=== PATIENT | male | born 1980 | race Caucasian/White ===

== ENCOUNTER 2016-10-08 16:22 | Inpatient (IN) | payer OTHER ==
[2016-10-08 16:59] VITALS: BMI 21.7
--- NOTE | 2016-10-08 17:37 | HP ---
COWS - Scale Resting Pulse: 0= [place] 80 or Below Sweatin=Flushed/Facial Moisture Restless Observation: 3= Extraneous Movement Pupil Size: 2= Moderately Dilated Bone or Joint Aches: 2= Severe Diffuse Aches Runny Nose/ Eye Tearin= Runny Nose/Eyes GI Upset > 30mins: 3= Vomiting/Diarrhea Tremor Observation: 2= Slight Tremor Visible Yawning Observation: 2= >3x During Session Anxiety or Irritability: 2=Irritable/Anxious Goose Flesh Skin: 0=Smooth Skin COWS Score: 20 Admission ROS S - HPI Chief Complaint: i need help to stop using heroin Allergies/Adverse Reactions: Allergies Allergy/AdvReac Type Severity Reaction Status Date / Time bee pollen Allergy Severe Verified 10/08/16 17:13 bee venom protein (honey bee) Allergy Severe Verified 10/08/16 17:13 History of Present Illness: this 36 years old male with heroin dependence seeking detox,last treatment [facility] 08/15/15 to 08/18/15 history of suboxone maintenance,did not take it for 1 week,did not want to be on suboxone bipolar disorder ptsd no significant period of sobriety - Ebola screening Have you traveled outside of the country in the last 21 days: No Have you had contact with anyone from an Ebola affected area: No Have you been sick,other than usual withdrawal symptoms: No Do you have a fever: No - Review of Systems Constitutional: Chills, Diaphoresis, Loss of Appetite, Malaise, Night Sweats, Changes in sleep, Weakness, Unintentional Wgt. Loss EENT: reports: Tearing, Nose Congestion Respiratory: reports: No Symptoms reported Cardiac: reports: Palpitations GI: reports: Diarrhea, Nausea, Vomiting, Abdominal cramping : reports: No Symptoms Reported Musculoskeletal: reports: Back Pain, Joint Pain, Muscle Pain, Joint Stiffness Integumentary: reports: Dryness Neuro: reports: Headache, Tremors Endocrine: reports: No Symptoms Reported Hematology: reports: No Symptoms Reported Psychiatric: reports: Judgement Intact, Mood/Affect Appropiate, Orientated x3, other (bipolar disorder) Patient History - Patient Medical History Hx Anemia: No Hx Asthma: No Hx Chronic Obstructive Pulmonary Disease (COPD): No Hx Cancer: No Hx Cardiac Disorders: No Hx Congestive Heart Failure: No Hx Hypertension: No Hx Hypercholesterolemia: No Hx Pacemaker: No HX Cerebrovascular Accident: No Hx Seizures: No Hx Dementia: No Hx Diabetes: No Hx Gastrointestinal Disorders: No Hx Liver Disease: No Hx Genitourinary Disorders: No Hx Sexually Transmitted Disorders: No Hx Renal Disease (ESRD): No Hx Thyroid Disease: No Hx Human Immunodeficiency Virus (HIV): No (LAST 05/23 NEGATIVE) Hx Hepatitis C: No Hx Depression: Yes Hx Suicide Attempt: Yes (Pt drank anti-freeze at age 17 yrs old.) Hx Bipolar Disorder: Yes Hx Schizophrenia: No Other Medical History: no suicidal,no homicidal,low back pain - Patient Surgical History Past Surgical History: No Hx Neurologic Surgery: No Hx Cataract Extraction: No Hx Cardiac Surgery: No Hx Lung Surgery: No Hx Breast Surgery: No Hx Breast Biopsy: No Hx Abdominal Surgery: No Hx Appendectomy: No Hx Cholecystectomy: No Hx Genitourinary Surgery: No Hx Section: No Hx Orthopedic Surgery: No Anesthesia Reaction: No - PPD History Previous Implant?: Yes Documented Results: Negative w/o proof Implanted On Prior [facility] Admission?: Yes Date: 08/17/15 Results: 0 mm PPD to be Administered?: Yes - Smoking Cessation Smoking history: Current every day smoker Have you smoked in the past 12 months: Yes Aproximately how many cigarettes per day: 20 Cigars Per Day: 0 Hx Chewing Tobacco Use: No Initiated information on smoking cessation: Yes 'Breaking Loose' booklet given: 10/08/16 - Substance & Tx. History Hx Alcohol Use: No Substance Use Type: Marijuana Hx Substance Use Treatment: Yes ([facility] 08/15/15 to 08/18/15) - Substances Abused Heroin Route: Injection Frequency: Daily Amount used: 3 bags Age of first use: 17 Date of Last Use: 10/08/16 Marijuana/Hashish Route: Smoking Frequency: 1-3 times last 30 days Amount used: 1 joint Age of first use: 14 Date of Last Use: 10/03/16 Family Disease History - Family Disease History Family Disease History: Diabetes: Grandparent, Other: Mother (ALCOHOLIC) Admission Physical Exam BHS - Vital Signs Vital Signs: Vital Signs - 24 hr 10/08/16 16:57 Temperature 97.7 F Pulse Rate 66 Respiratory 20 Rate Blood Pressure 113/66 - Physical General Appearance: Yes: Moderate Distress, Thin, Tremorous, Irritable, Sweating , Anxious HEENTM: Yes: Hearing grossly Normal, Normal ENT Inspection, Normocephalic, JERAD , Pharynx Normal Respiratory: Yes: Lungs Clear, Normal Breath Sounds, No Respiratory Distress Neck: Yes: Within Normal Limits, No masses,lesions,Nodules, Supple, Trachea in good position Breast: Yes: Within Normal Limits Cardiology: Yes: Within Normal Limits, Regular Rhythm, Regular Rate, S1, S2 Abdominal: Yes: Within Normal Limits, Normal Bowel Sounds, Non Tender, Flat, Soft Genitourinary: Yes: Within Normal Limits Back: Yes: Normal Inspection, Muscle Spasm Musculoskeletal: Yes: full range of Motion, Back pain, Joint Stiffness, Muscle Pain Extremities: Yes: Normal Inspection, Normal Range of Motion, Tremors Neurological: Yes: commercial internship II-XII NML intact, Alert, Motor Strength 5/5, Normal Mood /Affect Integumentary: Yes: Dry Lymphatic: Yes: Within Normal Limits - Diagnostic (1) Bipolar disorder Current Visit: No Status: Acute (2) Cocaine abuse Current Visit: No Status: Acute (3) Opioid dependence with withdrawal Current Visit: No Status: Acute (4) Weight loss Current Visit: No Status: Acute (5) Nicotine dependence Current Visit: No Status: Chronic (6) Low back pain Current Visit: Yes Status: Acute Cleared for Admission [facility] - Detox or Rehab [facility] Level of Care: Medically Managed Detox Regimen/Protocol: Methadone [facility] Breath Alcohol Content Breath Alcohol Content: 0 Urine Drug Screen - Results Drug Screen Negative: No Urine Drug Screen Results: THC-Marijuana, ANITA-Cocaine, OPI-Opiates
[2016-10-08] MEDS ORDERED: MENTHOL/PHENOL 1 EACH UD MM PRN (17:48)
[2016-10-08] MEDS ORDERED: MAGNESIUM CITRATE 300 ML BOTTLE PO PRN (17:48)
[2016-10-08] MEDS ORDERED: LOPERAMIDE HCL 2 MG CAPSULE PO PRN (17:48)
[2016-10-08] MEDS ORDERED: METHADONE HCL 10 MG TABLET (FOR DETOX USE ONLY) PO ONE ×2 (17:48→23:00)
[2016-10-08] MEDS ORDERED: guaiFENesin/D-METHORPHAN HB 10 ML UNIT-DOSE CUPS PO PRN (17:48)
[2016-10-08] MEDS ORDERED: P-EPHED 60MG/TRIPROLIDI 2.5MG TABLET PO PRN (17:48)
[2016-10-08] MEDS ORDERED: ACETAMINOPHEN 325 MG TABLET (FP) PO PRN (17:48)
[2016-10-08] MEDS ORDERED: MAGNESIUM HYDROX 2400MG/30ML ORAL SUSPENSION 30 ML CUP PO PRN (17:48)
[2016-10-08] MEDS ORDERED: IBUPROFEN 400 MG TABLET (FP) PO PRN (17:48)
[2016-10-08] MEDS ORDERED: diphenhydrAMINE HCL 50 MG CAPSULE PO PRN (17:48)
[2016-10-08] MEDS ORDERED: hydrOXYzine PAMOATE 50 MG CAPSULE (FP) PO PRN (17:48)
[2016-10-08] MEDS ORDERED: MAG HYDROX/AL HYDROX/SIMETH 30 ML UNIT-DOSE CUP PO PRN (17:48)
[2016-10-08] MEDS: diazePAM 5 MG TABLET PO PRN (18:40)
[2016-10-08] MEDS: NICOTINE 21 MG/24 HOURS TOPICAL PATCH TD SCH (18:44)
[2016-10-08] MEDS: THIAMINE HCL 100 MG TABLET (FP) PO SCH (22:03)
[2016-10-08 23:28] LABS: URINE APPEARANCE CLOUDY; URINE BLOOD NEGATIVE (NEGATIVE); URINE COLOR AMBER; URINE GLUCOSE (UA) NEGATIVE (NEGATIVE); URINE KETONE TRACE (NEGATIVE); URINE LEUK ESTERASE NEGATIVE (NEGATIVE); URINE NITRITE NEGATIVE (NEGATIVE)
[2016-10-08 23:30] LABS: URINE PROTEIN 2+ (NEGATIVE)
[2016-10-09 00:56] LABS: URINE HYALINE CAST 178 /lpf; URINE MUCUS MANY; URINE RBC 13 /hpf (0-3); URINE WBC 18 /hpf (3-5); YEAST MANY
[2016-10-09] MEDS: diazePAM 5 MG TABLET PO PRN ×6 (02:00→22:47)
[2016-10-09] MEDS ORDERED: METHADONE HCL 10 MG TABLET (FOR DETOX USE ONLY) PO ONE (10:00)
[2016-10-09 10:09] LABS: ALBUMIN 3.5 g/dl (3.4-5.0); ANION GAP 7 (8-16); CO2 29 mmol/L (21-32); GLUCOSE,RANDOM 79 mg/dL (74-106); SGOT/AST 15 U/L (15-37); SGPT/ALT 21 U/L (12-78)
[2016-10-09 10:11] LABS: ALK PHOS 57 U/L (45-117); BILIRUBIN,TOTAL 0.7 mg/dL (0.2-1.0); CALCIUM 8.6 mg/dL (8.5-10.1); CREATININE 0.9 mg/dL (0.7-1.3); TOT PROT 6.1 g/dl (6.4-8.2)
[2016-10-09 10:16] LABS: MCH 30.1 pg (25.7-33.7); MEAN CELL VOLUME 91.3 fl (80-96); MEAN PLT VOLUME 8.2 fl (7.5-11.1); PLATELET COUNT 224 K/MM3 (134-434); RDW 15.1 % (11.9-15.9)
[2016-10-09] MEDS: PRENATAL VITAMINS W/ FOLIC ACID TABLET (FP) PO SCH (10:24)
[2016-10-09] MEDS: NICOTINE 21 MG/24 HOURS TOPICAL PATCH TD SCH (10:25)
--- NOTE | 2016-10-09 10:52 | CONSULT ---
[facility] Psychiatric Consult - Data Date of interview: 10/09/16 Admission source: [facility] Identifying data: Readmission to [facility] for this 36 y/o male seeking detox treatment on for heroin and marijuana dependence.Patient is single without children,domiciled,unemployed and supported on Welfare. Substance Abuse History: Fully discussed with the patient in this interview.Mr Lopez confirms pattern of substance abuse self-reported at [facility] : Smoking Cessation. Smoking history: Current every day smoker. Have you smoked in the past 12 months: Yes. Aproximately how many cigarettes per day: 20. Cigars Per Day: 0. Hx Chewing Tobacco Use: No. Initiated information on smoking cessation : Yes. 'Breaking Loose' booklet given: 10/08/16. - Substance & Tx. History. Hx Alcohol Use: No. Substance Use Type: Marijuana. Hx Substance Use Treatment : Yes ([facility] 08/15/15 to 08/18/15). - Substances Abused. Heroin. Route: Injection. Frequency: Daily. Amount used: 3 bags. Age of first use: 17. Date of Last Use: 10/08/16. Marijuana/Hashish. Route: Smoking. Frequency: 1-3 times last 30 days. Amount used: 1 joint. Age of first use: 14. Date of Last Use: 10/03/16 Medical History: Patient denies medical problems. Psychiatric History: Patient is a hostile and easily irritable historian.He admits to " more than 20 " psychiatric hospitalizations.Known mostly to [facility] and [facility].Diagnosed with Bipolar Disorder and PTSD.Mr Lopez gets his psychiatric outpatient services at the [facility] in [place].Maintained on gabapentin 1200 mg po tid + thorazine 150 mg po hs.Patient endorses adequate adherence to [facility]PD care.Noted history of a suicide attempt (deliberate ingestion of antifreeze fluid) at age 17.Chronic insomnia remains an enduring issue. Physical/Sexual Abuse/Trauma History: Patient denies. Additional Comment: Urine Drug Screen Results: THC-Marijuana, ANITA-Cocaine, OPI- Opiates.Noted. Mental Status Exam - Mental Status Exam Alert and Oriented to: Time, Place, Person Cognitive Function: Good Patient Appearance: Well Groomed Mood: Hostile, Nervous, Withdrawn, Irritable Affect: Normal Range Patient Behavior: Passive, Fatigued, Guarded, Cooperative (marginally) Speech Pattern: Clear Voice Loudness: Normal Thought Process: Goal Oriented Thought Disorder: Not Present Hallucinations: Denies Suicidal Ideation: Denies Homicidal Ideation: Denies Insight/Judgement: Poor Sleep: Poorly, Difficulty falling asleep Appetite: Good Muscle strength/Tone: Normal Gait/Station: Normal Psychiatric Findings - Problem List ([place] 1, 2,3) (1) Opioid dependence with withdrawal Current Visit: Yes Status: Acute (2) Cannabis dependence Current Visit: Yes Status: Acute (3) Nicotine dependence Current Visit: Yes Status: Acute (4) Drug-induced mood disorder Current Visit: Yes Status: Acute (5) Bipolar disorder Current Visit: Yes Status: Chronic Comment: History. (6) PTSD (post-traumatic stress disorder) Current Visit: No Status: Chronic Comment: As per records. (7) Low back pain Current Visit: Yes Status: Chronic (8) Insomnia Current Visit: Yes Status: Acute - Initial Treatment Plan Initial Treatment Plan: Psychoeducation initiated.Detoxification.Medications : thorazine 100 mg po hs + gabapentin 600 mg po tid.Doses are reduced as caution against potential for oversedation/orthostasis.Beisides patient's reliability remains questionable (survey of recent pharmacy claims : not helpful).Will titrate as clinically indicated.Side effects/benefits discussed with patient.He is in agreement with this careplan.Observation.
[2016-10-09 12:27] LABS: HIV 1 & 2 AB NEGATIVE; HIV 1 AGp24 NEGATIVE
--- NOTE | 2016-10-09 12:56 | EKG ---
Test Reason : Blood Pressure : / mmHG Vent. Rate : 064 BPM Atrial Rate : 064 BPM P-R Int : 142 ms QRS Dur : 110 ms QT Int : 402 ms P-R-T Axes : 062 -70 057 degrees QTc Int : 414 ms NORMAL SINUS RHYTHM INCOMPLETE RIGHT BUNDLE BRANCH BLOCK LEFT ANTERIOR FASCICULAR BLOCK ABNORMAL ECG NO PREVIOUS ECGS AVAILABLE Confirmed by HARLEEN PLUMMER MD ([id number]) on 10/09/2016 12:55:35 PM Referred By: Confirmed By:HARLEEN PLUMMER MD
[2016-10-09] MEDS: NICOTINE POLACRILEX 4 MG GUM BUC PRN ×2 (13:53→18:46)
[2016-10-09] MEDS: GABAPENTIN 300 MG CAPSULE (FP) PO SCH ×2 (14:56→22:13)
--- NOTE | 2016-10-09 14:56 | PN ---
S COWS - Scale Resting Pulse: 0= [place] 80 or Below Sweatin= Chills/Flushing Restless Observation: 1= Difficult to Sit Still Pupil Size: 0= Normal to Room Light Bone or Joint Aches: 2= Severe Diffuse Aches Runny Nose/ Eye Tearin= Nasal Congestion GI Upset > 30mins: 0= None Tremor Observation of Outstretched Hands: 2= Slight Tremor Visible Yawning Observation: 1= 1-2x During Session Anxiety or Irritability: 2=Irritable/Anxious Goose Flesh Skin: 3=Piloerection COWS Score: 13 S Progress Note (SOAP) Subjective: Tremors, Interrupted sleep, H/A, Sweating. Objective: PT. A & O X 3. NO ACUTE DISTRESS. 10/09/16 14:52 Vital Signs Temperature 98.7 F 10/09/16 13:06 Pulse Rate 69 10/09/16 13:06 Respiratory Rate 20 10/09/16 13:06 Blood Pressure 104/67 10/09/16 13:06 O2 Sat by Pulse Oximetry (%) Laboratory Tests 10/08/16 10/09/16 10/09/16 20:46 06:30 06:30 WBC 8.0 RBC 4.28 Hgb 12.9 Hct 39.1 MCV 91.3 MCH 30.1 MCHC 33.0 RDW 15.1 Plt Count 224 MPV 8.2 Sodium Potassium Chloride Carbon Dioxide Anion Gap BUN Creatinine Creat Clearance w eGFR Random Glucose Calcium Total Bilirubin AST ALT Alkaline Phosphatase Total Protein Albumin Urine Color Diann Urine Appearance Cloudy Urine pH 5.0 D Ur Specific [place] >= 1.030 H Urine Protein 2+ H Urine Glucose (UA) Negative Urine Ketones Trace H Urine Blood Negative Urine Nitrite Negative Urine Bilirubin 2.0 Urine Urobilinogen 2.0 Ur Leukocyte Esterase Negative Urine RBC 13 Urine WBC 18 Ur Epithelial Cells Rare Hyaline Casts 178 Urine Mucus Many Urine Yeast Many RPR Titer HIV 1&2 Antibody Screen Negative HIV P24 Antigen Negative 10/09/16 10/09/16 06:30 06:30 WBC RBC Hgb Hct MCV MCH MCHC RDW Plt Count MPV Sodium 139 Potassium 4.3 Chloride 103 Carbon Dioxide 29 Anion Gap 7 L BUN 15 D Creatinine 0.9 Creat Clearance w eGFR > 60 Random Glucose 79 Calcium 8.6 Total Bilirubin 0.7 AST 15 D ALT 21 Alkaline Phosphatase 57 D Total Protein 6.1 L Albumin 3.5 Urine Color Urine Appearance Urine pH Ur Specific [place] Urine Protein Urine Glucose (UA) Urine Ketones Urine Blood Urine Nitrite Urine Bilirubin Urine Urobilinogen Ur Leukocyte Esterase Urine RBC Urine WBC Ur Epithelial Cells Hyaline Casts Urine Mucus Urine Yeast RPR Titer Nonreactive HIV 1&2 Antibody Screen HIV P24 Antigen LABS NOTED. Assessment: 10/09/16 14:52 WITHDRAWAL SYMPTOMS. Plan: CONTINUE DETOX.
[2016-10-09] MEDS: chlorproMAZINE HCL 100 MG TABLET PO SCH (22:13)
[2016-10-09] MEDS: THIAMINE HCL 100 MG TABLET (FP) PO SCH (22:13)
[2016-10-10] MEDS: diazePAM 5 MG TABLET PO PRN ×5 (04:04→23:11)
[2016-10-10] MEDS: GABAPENTIN 300 MG CAPSULE (FP) PO SCH ×3 (05:49→23:12)
[2016-10-10] MEDS: NICOTINE POLACRILEX 4 MG GUM BUC PRN ×2 (09:20→13:57)
[2016-10-10] MEDS: PRENATAL VITAMINS W/ FOLIC ACID TABLET (FP) PO SCH (09:21)
[2016-10-10] MEDS: NICOTINE 21 MG/24 HOURS TOPICAL PATCH TD SCH (09:21)
[2016-10-10] MEDS ORDERED: METHADONE HCL 5 MG TABLET (FOR DETOX USE ONLY) PO ONE (10:00)
--- NOTE | 2016-10-10 14:30 | PN ---
[facility]HS COWS - Scale Resting Pulse: 1= [place] 81-100 Sweatin= Chills/Flushing Restless Observation: 1= Difficult to Sit Still Pupil Size: 0= Normal to Room Light Bone or Joint Aches: 1= Mild Discomfort Runny Nose/ Eye Tearin= Nasal Congestion GI Upset > 30mins: 2= Nausea/Diarrhea Tremor Observation of Outstretched Hands: 2= Slight Tremor Visible Yawning Observation: 1= 1-2x During Session Anxiety or Irritability: 4=Extreme Anxiety Goose Flesh Skin: 0=Smooth Skin COWS Score: 14 S Progress Note (SOAP) Subjective: Sweating, Diarrhea, Tremors, Interrupted Sleep. Objective: PT. A & O X 3, OBSERVED AMBULATING ON UNIT. NO ACUTE DISTRESS. 10/10/16 14:27 Vital Signs Temperature 99.1 F 10/10/16 13:54 Pulse Rate 91 H 10/10/16 13:54 Respiratory Rate 18 10/10/16 13:54 Blood Pressure 114/76 10/10/16 13:54 O2 Sat by Pulse Oximetry (%) Laboratory Tests 10/08/16 10/09/16 10/09/16 20:46 06:30 06:30 WBC 8.0 RBC 4.28 Hgb 12.9 Hct 39.1 MCV 91.3 MCH 30.1 MCHC 33.0 RDW 15.1 Plt Count 224 MPV 8.2 Sodium Potassium Chloride Carbon Dioxide Anion Gap BUN Creatinine Creat Clearance w eGFR Random Glucose Calcium Total Bilirubin AST ALT Alkaline Phosphatase Total Protein Albumin Urine Color Diann Urine Appearance Cloudy Urine pH 5.0 D Ur Specific [place] >= 1.030 H Urine Protein 2+ H Urine Glucose (UA) Negative Urine Ketones Trace H Urine Blood Negative Urine Nitrite Negative Urine Bilirubin 2.0 Urine Urobilinogen 2.0 Ur Leukocyte Esterase Negative Urine RBC 13 Urine WBC 18 Ur Epithelial Cells Rare Hyaline Casts 178 Urine Mucus Many Urine Yeast Many RPR Titer HIV 1&2 Antibody Screen Negative HIV P24 Antigen Negative 10/09/16 10/09/16 06:30 06:30 WBC RBC Hgb Hct MCV MCH MCHC RDW Plt Count MPV Sodium 139 Potassium 4.3 Chloride 103 Carbon Dioxide 29 Anion Gap 7 L BUN 15 D Creatinine 0.9 Creat Clearance w eGFR > 60 Random Glucose 79 Calcium 8.6 Total Bilirubin 0.7 AST 15 D ALT 21 Alkaline Phosphatase 57 D Total Protein 6.1 L Albumin 3.5 Urine Color Urine Appearance Urine pH Ur Specific [place] Urine Protein Urine Glucose (UA) Urine Ketones Urine Blood Urine Nitrite Urine Bilirubin Urine Urobilinogen Ur Leukocyte Esterase Urine RBC Urine WBC Ur Epithelial Cells Hyaline Casts Urine Mucus Urine Yeast RPR Titer Nonreactive HIV 1&2 Antibody Screen HIV P24 Antigen LABS NOTED. Assessment: 10/10/16 14:28 WITHDRAWAL SYMPTOMS. Plan: CONTINUE DETOX. REPEAT UA FOR ABNORMAL ADMISSION UA VALUES.
--- NOTE | 2016-10-10 22:53 | PN ---
S Progress Note Note: Psychiatry Attending's note : Called by nurse in charge to adjust dose of thorazine. Normal vitals.Will increase thorazine to 150 mg po hs. Gabapentin will be increased to 800 mg po tid in the morning. Discussed with nurse.
[2016-10-10] MEDS ORDERED: chlorproMAZINE HCL 25 MG TABLET PO STA (23:08)
[2016-10-10] MEDS: THIAMINE HCL 100 MG TABLET (FP) PO SCH (23:12)
[2016-10-10] MEDS: chlorproMAZINE HCL 100 MG TABLET PO SCH (23:18)
[2016-10-11] MEDS: diazePAM 5 MG TABLET PO PRN (05:59)
[2016-10-11] MEDS: GABAPENTIN 300 MG CAPSULE (FP) PO SCH (06:00)
[2016-10-11 09:59] VITALS: BP 119/76; PULSE 92; TEMP 98.8
[2016-10-11] MEDS ORDERED: METHADONE HCL 5 MG TABLET (FOR DETOX USE ONLY) PO ONE (10:00)
[2016-10-11] MEDS ORDERED: GABAPENTIN 400 MG CAPSULE (FP) PO SCH (14:00)
--- NOTE | 2016-10-11 16:53 | DS ---
[facility] Detox Discharge Summary Admission Date: 10/08/16 Discharge Date: 10/11/16 - History Present History: Cannabis Dependence, Cocaine Dependence, Opioid Dependence Additional Comments: PATIENT DOES NOT WISH TO STAY TO COMPLETE DETOX REGIMEN. PATIENT REPORTS THAT HE CURRENTLY HAS A MEDICAL PROVIDER PART OF HIS OUTPATIENT CARE AT [facility]. PATIENT ADVISED TO FOLLOW-UP THERE FOR AFTERCARE. PATIENT ALSO ADVISED TO IMMEDIATELY GO TO NEAREST ER SHOULD ANY INTOLERABLE DETOX SYMPTOMS DEVELOP AT ANY TIME. PATIENT LEFT UNIT IN STABLE MEDICAL CONDITION. Pertinent Past History: Bipolar Disorder, Insomnia, PTSD. - Physical Exam Results Vital Signs: Vital Signs Temperature 98.8 F 10/11/16 09:59 Pulse Rate 92 H 10/11/16 09:59 Respiratory Rate 18 10/11/16 09:59 Blood Pressure 119/76 10/11/16 09:59 O2 Sat by Pulse Oximetry (%) Pertinent Admission Physical Exam Findings: WITHDRAWAL SYMPTOMS. Laboratory Tests 10/08/16 10/09/16 10/09/16 20:46 06:30 06:30 WBC 8.0 RBC 4.28 Hgb 12.9 Hct 39.1 MCV 91.3 MCH 30.1 MCHC 33.0 RDW 15.1 Plt Count 224 MPV 8.2 Sodium Potassium Chloride Carbon Dioxide Anion Gap BUN Creatinine Creat Clearance w eGFR Random Glucose Calcium Total Bilirubin AST ALT Alkaline Phosphatase Total Protein Albumin Urine Color Diann Urine Appearance Cloudy Urine pH 5.0 D Ur Specific [place] >= 1.030 H Urine Protein 2+ H Urine Glucose (UA) Negative Urine Ketones Trace H Urine Blood Negative Urine Nitrite Negative Urine Bilirubin 2.0 Urine Urobilinogen 2.0 Ur Leukocyte Esterase Negative Urine RBC 13 Urine WBC 18 Ur Epithelial Cells Rare Hyaline Casts 178 Urine Mucus Many Urine Yeast Many RPR Titer HIV 1&2 Antibody Screen Negative HIV P24 Antigen Negative 10/09/16 10/09/16 06:30 06:30 WBC RBC Hgb Hct MCV MCH MCHC RDW Plt Count MPV Sodium 139 Potassium 4.3 Chloride 103 Carbon Dioxide 29 Anion Gap 7 L BUN 15 D Creatinine 0.9 Creat Clearance w eGFR > 60 Random Glucose 79 Calcium 8.6 Total Bilirubin 0.7 AST 15 D ALT 21 Alkaline Phosphatase 57 D Total Protein 6.1 L Albumin 3.5 Urine Color Urine Appearance Urine pH Ur Specific [place] Urine Protein Urine Glucose (UA) Urine Ketones Urine Blood Urine Nitrite Urine Bilirubin Urine Urobilinogen Ur Leukocyte Esterase Urine RBC Urine WBC Ur Epithelial Cells Hyaline Casts Urine Mucus Urine Yeast RPR Titer Nonreactive HIV 1&2 Antibody Screen HIV P24 Antigen LABS NOTED. - Treatment Hospital Course: Detoxed Safely - Diagnosis (1) Opioid dependence with withdrawal Status: Acute (2) Weight loss Status: Acute (3) Bipolar disorder Status: Chronic Qualifiers: Active/Remission status: remission status unspecified Qualified Code (s): F31.9 - Bipolar disorder, unspecified (4) PTSD (post-traumatic stress disorder) Status: Chronic (5) Cannabis dependence Status: Acute (6) Drug-induced mood disorder Status: Acute (7) Nicotine dependence Status: Chronic Qualifiers: Nicotine product type: cigarettes Substance use status: uncomplicated Qualified Code(s): F17.210 - Nicotine dependence, cigarettes, uncomplicated (8) Insomnia Status: Acute Qualifiers: Insomnia type: unspecified Qualified Code(s): G47.00 - Insomnia, unspecified (9) Low back pain Status: Chronic Qualifiers: Chronicity: unspecified Back pain laterality: unspecified Sciatica presence: unspecified whether sciatica present Qualified Code(s): M54.5 - Low back pain (10) Cocaine abuse Status: Acute - AMA Did Patient Leave Against Medical Advice: Yes (PATIENT DID NOT WISH TO STAY TO COMPLETE DETOX REGIMEN. SEE COMMENTS ABOVE.)
[2016-10-12] MEDS ORDERED: METHADONE HCL 10 MG TABLET (FOR DETOX USE ONLY) PO ONE (10:00)
[2016-10-13] MEDS ORDERED: METHADONE HCL 5 MG TABLET (FOR DETOX USE ONLY) PO ONE (06:00)
== END 2016-10-11 08:40 | disposition left against medical advice (07) | DRG 770 ==
LOC: YASAS 16:22 → Y3N 17:57
PROVIDERS: ADMIT Internal Medicine; ATTEND Internal Medicine
PROC: HZ2ZZZZ Detoxification Services for Substance Abuse Treatment (ICD-10-PCS; principal; 2016-10-08)
DX: F11.23 Opioid dependence with withdrawal (principal); F12.20 Cannabis dependence, uncomplicated; F14.10 Cocaine abuse, uncomplicated; F17.210 Nicotine dependence, cigarettes, uncomplicated; F31.9 Bipolar disorder, unspecified; F19.24 Other psychoactive substance dependence with psychoactive substance-induced mood disorder; F43.10 Post-traumatic stress disorder, unspecified; G47.00 Insomnia, unspecified; M54.5 Low back pain; R82.90 Unspecified abnormal findings in urine; Z87.898 Personal history of other specified conditions; Z91.5 Personal history of self-harm
CPT/HCPCS: 36415; 80053; 81003; 81015; 85027; 86593; 87389; 93005; 93010